=== PATIENT | female | born 1995 | race Caucasian/White ===

== ENCOUNTER 2018-03-12 18:20 | Emergency (ER) | payer OTHER ==
--- NOTE | 2018-03-12 19:32 | ED Physician Documentation ---
General Adult - HISTORIAN Historian: patient, friend - HPI Stated Complaint: Constipation Chief Complaint: General Adult Additional Information: no bm for 3 weeks saw ED [facility] [place] lab just miralax=no help for 2weeks to now. has genl abd pain nausea-no lprev hx constipation-had control implant lt arm. never had constipation before Onset: other (5 wks) Timing: still present, worse Severity: moderate - ROS CONST: no problems (nausea abd pain-ua = ok) EYES/ENT: denies: problems with vision CVS/RESP: none GI/: abdominal pain, nausea MS/SKIN/LYMPH: none NEURO/PSYCH: headache - PAST HX Past History: other (deg hearing loss) Other History: other (t and a) Immunizations: UTD Allergies/Adverse Reactions: Allergies Allergy/AdvReac Type Severity Reaction Status Date / Time amoxicillin Allergy Verified 03/12/18 18:40 clavulanic acid Allergy Verified 03/12/18 18:40 [From Augmentin] Home Medications: Ambulatory Orders Medication Instructions Recorded Bupropion HCl [Bupropion HCl Sr] 150 mg PO D 03/12/18 Clonazepam [Clonazepam] 0.5 mg PO PRN PRN 03/12/18 Lamotrigine [Lamictal] 25 mg PO D 03/12/18 Venlafaxine HCl [Venlafaxine HCl 250 mg PO D 03/12/18 ER] - SOCIAL HX Smoking History: non-smoker Alcohol Use: none Drug Use: none - FAMILY HX Family History: No - VITAL SIGNS Vital Signs: Vital Signs Temp Pulse Resp BP Pulse Ox 98.3 F 101 H 18 120/87 100 03/12/18 18:21 03/12/18 18:21 03/12/18 18:21 03/12/18 18:21 03/12/18 18:21 - REVIEWED ASSESSMENTS Nursing Assessment Reviewed: Yes Vitals Reviewed: Yes ED Results Lab/Radiology - Radiology Radiology Impressions: rad reports constipation--agree entire abdomen - Orders Orders: ED Orders Category Date Time Status URINE HCG [URINE HCG] Stat Lab 03/12/18 Uncollected General Adult Physical Exam - PHYSICAL EXAM GENERAL APPEARANCE: moderate distress EENT: eye inspection normal NECK: normal inspection, supple RESPIRATORY: no resp distress, breath sounds normal CVS: reg rate & rhythm, heart sounds normal ABDOMEN: no distension, tenderness, decreased BS, guarding. No: soft (tense- guarding tender most epigastric rt uq), distended SKIN: warm/dry, normal color. No: cyanosis, diaphoresis, jaundice, mottled EXTREMITIES: non-tender, normal range of motion, no evidence of injury, no edema NEURO: oriented X3, motor nml, sensation nml, mood/affect nml Discharge Clincal Impression: undx abdominal pain, constipation Referrals: Primary Doctor,No [Primary Care Provider] - 2 Days Comments: home mg citrate hi water Condition: Good Disposition: 01 HOME, SELF-CARE Decision to Admit: NO Decision Time: 21:38
--- NOTE | 2018-03-12 20:59 | Diagnostic Imaging Report ---
SHEA COLLAZO [facility] [address] [facility].[address] [address] Report Submission Date: Mar 12, 2018 8:54:03 PM CDT Patient Study Name: PHILLY JACOBS Date: Mar 12, 2018 8:15:35 PM CDT Modality Type: DX Gender: F Description: ABDOMEN : 89 Institution: [facility] Physician: SHEA COLLAZO Single view chest and 3 views the abdomen Clinical history: Right flank pain Findings: The heart size is normal. The lungs are clear. There is no pneumoperitoneum. No gas distended loops of small bowel identified. The osseous structures are unremarkable. No abnormal calcifications identified. Impression: Negative Electronically signed on Mar 12, 2018 8:54:03 PM CDT by: Govind CONNELLY
[2018-03-12 21:45] VITALS: BP 107/56
[2018-03-13 06:43] LABS: APPEARANCE,URINE SLIGHTLY CLOUDY (CLEAR); COLOR,URINE YELLOW (YELLOW); OCCULT BLOOD,URINE NEGATIVE (NEGATIVE)
== END 2018-03-12 21:40 | disposition home or self-care (01) ==
LOC: ED 18:20
DX: R10.9 Unspecified abdominal pain (principal); K59.00 Constipation, unspecified
CPT/HCPCS: 74022; 81002; 81025; 87086; 87186; 99284

== ENCOUNTER 2018-03-23 21:04 | Emergency (ER) | payer OTHER ==
--- NOTE | 2018-03-23 21:13 | ED Physician Documentation ---
General Adult - HISTORIAN Historian: patient - HPI Stated Complaint: overdose Chief Complaint: General Adult Onset: hours (1) Timing: still present Severity: moderate Further Comments: yes (Pt is a 23 yo pt who took a deliberate overdose of Klonazepam. Pt took fifty-nine 0.5 mg tablets, approx 30 mg Klonazepam. Pt denies taking alcohol or additional medicines with the overdose. 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 Pt lives with brother and his girlfriend. Girlfriend was apparently monitoring the pt for depression, and discovered the overdose about 1 hr after it occurred. Pt has hx of suicidality by drug overdose "a couple of years ago." Pt had only one previous attempt, she says. Pt is rx'd lamictal, effexor and klonapin. Pt has slightly slurred speech on presentation.) - ROS CONST: no problems EYES/ENT: none CVS/RESP: none GI/: none MS/SKIN/LYMPH: none NEURO/PSYCH: depression - PAST HX Past History: other (anxiety/depression with one previous medication overdose; essential hearing loss.) Allergies/Adverse Reactions: Allergies Allergy/AdvReac Type Severity Reaction Status Date / Time amoxicillin Allergy Verified 03/23/18 21:13 clavulanic acid Allergy Verified 03/23/18 21:13 [From Augmentin] Home Medications: Ambulatory Orders Medication Instructions Recorded Bupropion HCl [Bupropion HCl Sr] 150 mg PO D 03/12/18 Clonazepam [Clonazepam] 0.5 mg PO PRN PRN 03/12/18 Lamotrigine [Lamictal] 25 mg PO D 03/12/18 Venlafaxine HCl [Venlafaxine HCl 250 mg PO D 03/12/18 ER] - SOCIAL HX Smoking History: non-smoker Alcohol Use: occasionally - FAMILY HX Family History: No - VITAL SIGNS Vital Signs: Vital Signs Temp Pulse Resp BP Pulse Ox 107/56 03/12/18 21:42 - REVIEWED ASSESSMENTS Nursing Assessment Reviewed: Yes Vitals Reviewed: Yes Progress - Progress Progress: 1 L NS IVF - EKG/XRAY/CT EKG: NSR (HR=96; possible R ventricular conduction delay; otherwise wnl.) General Adult Physical Exam - PHYSICAL EXAM GENERAL APPEARANCE: mild distress EENT: eye inspection normal, ENT inspection normal, pharynx normal NECK: normal inspection, supple RESPIRATORY: no resp distress, chest non-tender, breath sounds normal CVS: reg rate & rhythm, heart sounds normal ABDOMEN: soft, no organomegaly, normal bowel sounds BACK: normal inspection, no CVA tenderness SKIN: warm/dry, normal color EXTREMITIES: non-tender, normal range of motion, no evidence of injury NEURO: oriented X3, motor nml, sensation nml Discharge Clincal Impression: Suicidality with Klonopin overdose Referrals: Primary Doctor,No [Primary Care Provider] - Condition: Stable Disposition: XFER SHT-TRM HOSP Decision to Admit: NO Decision Time: 23:03
[2018-03-23] MEDS ORDERED: 0.9 % SODIUM CHLORIDE 1,000 ML IV ONE (21:16)
[2018-03-23] MEDS: 0.9 % SODIUM CHLORIDE 1,000 ML IV SCH (21:21)
[2018-03-23 21:30] LABS: BASOPHILS % 0.3 (0.0-1.5); EOSINOPHILS % 0.8 % (0.0-6.8); MEAN CORPUSCULAR HEMOGLOBIN 30.4 pg (28.0-34.0); MONOCYTES % 3.7 % (0.0-11.0); NEUTROPHILS # 5.5 # k/uL (1.4-7.7)
[2018-03-23 21:36] LABS: eGFR (African) > 60; eGFR (Non-African) > 60
[2018-03-23 23:55] VITALS: BP 113/80
== END 2018-03-23 23:54 | disposition short-term general hospital (02) ==
LOC: ED 21:04
DX: F33.9 Major depressive disorder, recurrent, unspecified (principal); T42.4X2A Poisoning by benzodiazepines, intentional self-harm, initial encounter; T14.91XA Suicide attempt, initial encounter
CPT/HCPCS: 80053; 80320; 84703; 85025; 99284; J7030; 96360; G0480; S1016